=== PATIENT | male | born 1975 | race Caucasian/White ===

== ENCOUNTER 2020-06-28 17:11 | Emergency (ER) | payer OTHER ==
[2020-06-28 17:50] VITALS: BP 125/86; PULSE 86; TEMP 97; BMI 29.9
== END 2020-06-28 19:57 | disposition home or self-care (01) ==
LOC: JERFT 17:11
DX: R10.9 Unspecified abdominal pain (principal)
CPT/HCPCS: 74018-TC-FY; 99283-25